=== PATIENT | male | born 1980 | race Two or more races ===

== ENCOUNTER 2019-07-28 15:34 | Emergency (ER) | payer BC ==
[~2019-07-28] VITALS: Ht 180.3 cm; Wt 102.3 kg
--- NOTE | 2019-07-28 17:08 | NUR ---
Pt to room from lobby.
--- NOTE | 2019-07-28 17:16 | NUR ---
PT RESTING IN POSITION OF COMFORT IN [facility]. CONTINUOUS SPO2 MONITORING IN PLACE. PT REMAINS HYPERTENSIVE. AWAITING EVAL BY ED MD. FALL PRECAUTIONS IN PLACE. CALL LIGHT W/IN REACH, PT INSTRUCTED ON USE, VERBALIZED UNDERSTANDING. REPORT TO PRIMARY RN, ZARI.
--- NOTE | 2019-07-28 17:37 | NUR ---
MD STUDENT AT BEDSIDE ASSESSING PT NOW.
--- NOTE | 2019-07-28 17:46 | NUR ---
REPORT RECEIVED FROM COREY YOO. PT RESTING ON [place]. CONNECTED TO MONITOR. ALEJANDRO. DENIES NEEDS. BP NOW 176/107
[2019-07-28] MEDS ORDERED: LABETALOL 5MG/ML, 20ML ONE (17:59)
--- NOTE | 2019-07-28 18:11 | NUR ---
PIV ATTEMPTED X2. UNSUCCESSFUL. EMT ADVANCED ATTEMPTING AT THIS TIME.
--- NOTE | 2019-07-28 18:15 | NUR ---
PIV STARTED. LABS DRAWN. PT MEDICATED PER EMAR.
--- NOTE | 2019-07-28 18:27 | NUR ---
RADIOLOGY AT BEDSIDE NOW.
[2019-07-28 18:35] LABS: BASOPHILS # (AUTO) 0.05 x10^3/uL (0-0.1); BASOPHILS % (AUTO) 1 % (0-1); EOSINOPHILS # (AUTO) 0.25 x10^3/uL (0-0.4); EOSINOPHILS % (AUTO) 3 % (1-7); LYMPHOCYTES # (AUTO) 2.09 x10^3/uL (1-3.4); LYMPHOCYTES % (AUTO) 27 % (22-44); MD NO; MEAN CORPUSCULAR HEMOGLOBIN 31.5 pg (27.5-34.5); MEAN CORPUSCULAR HGB CONC 33.7 g/dL (33.2-36.2); MEAN CORPUSCULAR VOLUME 93.5 fL (81-97); MEAN PLATELET VOLUME 8.3 fL (7.4-10.4); MONOCYTES % (AUTO) 5 % (2-9); NEUTROPHILS # (AUTO) 5.07 x10^3/uL (1.8-6.8); NEUTROPHILS % (AUTO) 65 % (42-75); PLATELET COUNT 286 x10^3/uL (130-400); RED BLOOD COUNT 5.35 x10^6/uL (4.38-5.82); RED CELL DISTRIBUTION WIDTH 12.3 % (9.4-14.8)
[2019-07-28 18:45] LABS: ANION GAP 8 mmol/L (5-15); CALCIUM 9.2 mg/dL (8.5-10.1); CHLORIDE 104 mmol/L (98-107); CREATININE 1.08 mg/dL (0.7-1.3)
--- NOTE | 2019-07-28 18:51 | NUR ---
REPORT FROM ZARI NICOLE. ASSUMING CARE OF PT AT THIS TIME
[2019-07-28] MEDS ORDERED: LABETALOL 5MG/ML, 20ML IVPush ONE (19:00)
--- NOTE | 2019-07-28 19:32 | NUR ---
ALL RESULTS BACK AT THIS TIME CHART UP FOR RECHECK
[2019-07-28 19:35] VITALS: BP 155/108
== END 2019-07-28 19:47 | disposition home or self-care (01) ==
LOC: ED 19:20
DX: I16.9 Hypertensive crisis, unspecified (principal); R51 Headache
CPT/HCPCS: 36415; 70450; 71045; 80048; 85025; 93005; 96374; 99284